=== PATIENT | male | born 1935 | race Caucasian/White ===

== ENCOUNTER → 2021-01-03 | Outpatient (CLI) | payer MEDICARE ==
--- NOTE | 2021-01-03 12:42 | Diagnostic Imaging Report ---
PROCEDURE: CT lumbar spine without contrast. TECHNIQUE: Multiple contiguous axial images were obtained through the lumbar spine without the use of intravenous contrast. Sagittal and coronal reformations were then performed. Auto Exposure Controls were utilized during the CT exam to meet ALARA standards for radiation dose reduction. INDICATION: Back pain. Radiculopathy. COMPARISON: None. FINDINGS: No acute fracture or dislocation in the lumbar spine. No focal osseous lesions are seen. There is grade 1 retrolisthesis of L1 and L2. Endplate sclerotic changes are seen at the L2-L3 and L3-L4 levels. No evidence of acute spinal canal stenosis. No high-density material seen within the spinal canal. Degenerative changes are seen in the lumbar spine with disc bulges, facet hypertrophy, and buckling of ligamentum flavum. These appear greatest at the L3-L4 and L4-L5 levels. There is at least moderate spinal canal stenosis at these levels. The paraspinal soft tissues are unremarkable. There is calcified aortic and iliac atherosclerotic plaque IMPRESSION: 1. No acute fracture or dislocation of the lumbar spine. 2. Grade 1 retrolisthesis of L1 on L2. 3. Multilevel degenerative changes in the lumbar spine, greatest at L3-L4 and L4-L5. Dictated by: Dictated on workstation # [id number]
== END ==
LOC: RAD FS 10:24
PROVIDERS: ATTEND Family Medicine
DX: M43.16 Spondylolisthesis, lumbar region (principal); M47.26 Other spondylosis with radiculopathy, lumbar region
CPT/HCPCS: 72131

== ENCOUNTER → 2021-03-28 | Outpatient (CLI) | payer MEDICARE ==
--- NOTE | 2021-03-28 11:06 | Diagnostic Imaging Report ---
PROCEDURE: CT chest without contrast. TECHNIQUE: Multiple contiguous axial images were obtained through the chest without the use of intravenous contrast. Auto Exposure Controls were utilized during the CT exam to meet ALARA standards for radiation dose reduction. INDICATION: COPD COMPARISON: None available FINDINGS: Postsurgical changes of a CABG. No significant adenopathy within chest. Moderate scattered vascular calcifications. No aneurysmal dilatation of the thoracic aorta. The heart is mildly enlarged. Prominent epicardial fat pads. No pericardial effusion. No pleural effusion. The trachea is patent. No pneumothorax. Calcified granuloma are noted within the lungs bilaterally. Mild to moderate background emphysematous changes. Reticular opacities and subpleural fibrosis and atelectasis is noted within the lungs bilaterally. Minimal bronchiectatic changes within the lung bases. No significant honeycombing. Layering sludge and/or stones within the gallbladder. Indeterminate 1.5 cm hypodensity within the posterior aspect of the right kidney. Left total shoulder arthroplasty. Postsurgical changes associated with the right shoulder. Scattered osseous degenerative changes without acute osseous abnormality. 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 Sludge and/or stones within the gallbladder. Indeterminate 1.5 cm right renal hypodensity. This is of uncertain etiology based on this examination. Renal ultrasound would help to further evaluate. Additional findings as above. Dictated by: Dictated on workstation # [id number]
--- NOTE | 2021-03-28 12:45 | Diagnostic Imaging Report ---
PROCEDURE: CT thoracic spine without contrast. TECHNIQUE: Multiple axial computerized tomography images were obtained from the base of the thoracic spine to the vertex without intravenous contrast. Auto Exposure Controls were utilized during the CT exam to meet ALARA standards for radiation dose reduction. INDICATION: T11 compression fracture. COMPARISON: Lumbar spine CT from 01/03/2021. FINDINGS: Thoracic spine is normal in alignment. There is no compression or burst fracture within the thoracic vertebrae. Specifically, the T11 is intact. There are small Schmorl's node involving the central superior endplate of T11. The posterior elements in the thoracic spine are intact. No spinal stenosis or paravertebral hematoma. Atherosclerotic aorta is normal in caliber. Some chronic scarring within the lung bases is likely senescent in nature. IMPRESSION: 1. No fracture within the thoracic spine. 2. There is a small central Schmorl's node in the superior endplate of T11. Dictated by: Dictated on workstation # [id number]
== END ==
LOC: RAD FS 10:06
PROVIDERS: ATTEND Nurse Practitioner Family
DX: J43.9 Emphysema, unspecified (principal); M51.44 Schmorl's nodes, thoracic region; N28.89 Other specified disorders of kidney and ureter
CPT/HCPCS: 71250; 72128